=== PATIENT | female | born 1940 | race Caucasian/White ===

== ENCOUNTER 2017-08-08 20:03 | Inpatient (IN) | payer MEDICARE, OTHER ==
[~2017-08-08] VITALS: Ht 162.6 cm; Wt 54.5 kg
[~2017-08-08 20:03] MED LIST: ASPI-611; CITA20TA11 PO; ENAL2.5T40 PO; LORA0.5T PO; MEMA5TAB PO; QUET-1 PO; SIMV10TA2 PO; [UNRECOGNIZED DRUG - OTHER]; furosemide 10 MG/1 ML 10ml inj ONE; metoprolol tartrate 1mg/ml inj IV ONE; sod chloride 0.9% 10ml flush syringe IV ONE
[2017-08-08 20:51] LABS: BASOPHILS # (AUTO) 0.1 X10'3 (0-0.2); BASOPHILS % (AUTO) 0.7 % (0-1); EOSINOPHILS # (AUTO) 0.1 X10'3 (0-0.9); EOSINOPHILS % (AUTO) 1.1 % (0-6); HEMATOCRIT 41.1 % (35.0-45.0); HEMOGLOBIN 14.1 g/dl (12.0-16.0); LYMPHOCYTES # (AUTO) 2.2 X10'3 (1.1-4.8); MEAN CORPUSCULAR HGB CONC 34.3 % (33.0-36.5); MEAN CORPUSCULAR VOLUME 96.4 FL (78-98); MEAN PLATELET VOLUME 10.6 FL (7.4-10.4); MONOCYTES # (AUTO) 0.6 X10'3 (0-0.9); MONOCYTES % (AUTO) 7.9 % (2-12); NEUTROPHILS # (AUTO) 4.7 X10'3 (1.8-7.7); NEUTROPHILS % (AUTO) 61.3 % (42-75); PLATELET COUNT 150 X10'3 (140-440); RED BLOOD COUNT 4.26 X10'6 (4.20-5.60); RED CELL DISTRIBUTION WIDTH 16.2 % (11.5-14.5); WHITE BLOOD COUNT 7.6 X10'3 (4.5-11.0)
[2017-08-08 20:59] LABS: D-DIMER 1.75 MG/L FEU (0-0.50)
[2017-08-08] MEDS ORDERED: adenosine 3mg/ml 2ml vial IV ONE ×2 (21:00)
[2017-08-08] MEDS ORDERED: temazepam 15mg capsule PO PRN (21:00)
[2017-08-08 21:08] LABS: ALANINE AMINOTRANSFERASE 124 U/L (12-78); ALBUMIN 3.3 G/DL (3.4-5.0); ALKALINE PHOSPHATASE 74 IU/L (46-116); ANION GAP 8 (8-16); ASPARTATE AMINO TRANSFERASE 81 U/L (10-37); BILIRUBIN,TOTAL 0.8 MG/DL (0.1-1.0); BLOOD UREA NITROGEN 32 MG/DL (7-18); BUN/CREATININE RATIO 23.5 (6.6-38.0); CALCIUM 9.2 MG/DL (8.5-10.1); CHLORIDE 110 MMOL/L (99-107); CREATININE 1.36 MG/DL (0.40-0.90); GLUCOSE 111 MG/DL (70-104); POTASSIUM 4.4 MMOL/L (3.5-5.1); SODIUM 144 MMOL/L (135-145); TOTAL CARBON DIOXIDE 26.5 MMOL/L (24-32); TOTAL PROTEIN 6.7 G/DL (6.4-8.2); eGFR 38 ML/MIN
[2017-08-08 21:15] LABS: PLATELET ESTIMATE NORMAL
[2017-08-08 21:16] LABS: LARGE PLATELETS MODERATE
[2017-08-08] MEDS ORDERED: metoprolol tartrate 1mg/ml inj IV STA (21:24)
[2017-08-08] MEDS ORDERED: furosemide 40mg/4ml inj IV ONE (21:30)
[2017-08-08] MEDS ORDERED: heparin 10,000 units/1 ML INJ IV PRN (21:40)
[2017-08-08] MEDS ORDERED: heparin 10,000 units/1 ML INJ IV ONE (21:40)
[2017-08-08 21:52] LABS: INR 1.1 INR; PARTIAL THROMBOPLASTIN TIME 25 SECONDS (22-32); PROTHROMBIN TIME 11.3 SECONDS (9.0-12.0)
[2017-08-08] MEDS ORDERED: magnesium 2GM in 50ml NS 50 ML IV PRN (22:05)
[2017-08-08] MEDS ORDERED: acetaminophen 325mg tablet PO PRN (22:05)
[2017-08-08] MEDS ORDERED: magnesium 4gm in 100ml NS 100 ML IV PRN (22:05)
[2017-08-08] MEDS ORDERED: potassium Cl 40MEQ/NS 500ml 500 ML IV PRN ×2 (22:05)
[2017-08-08] MEDS ORDERED: ondansetron/PF 4mg/2ml inj IV PRN (22:05)
[2017-08-08] MEDS ORDERED: mag hydrox/Alum hydrox/simeth 30ml oral suspension PO PRN (22:05)
[2017-08-08] MEDS ORDERED: albuterol 2.5 MG/3 ML nebule NEB PRN (22:05)
[2017-08-08] MEDS ORDERED: morphine 4 MG/ML inj SYRINge IV PRN ×2 (22:05)
[2017-08-08] MEDS ORDERED: magnesium Cl slow-release 64mg tablet PO PRN (22:05)
[2017-08-08] MEDS ORDERED: magnesium hydroxide 30ml (MOM) UD suspension PO PRN (22:05)
[2017-08-08] MEDS ORDERED: ipratropium/albuterol 3ml nebule NEB PRN (22:05)
[2017-08-08] MEDS ORDERED: potassium Cl 20 mEq SR tablet PO PRN ×2 (22:05)
[2017-08-08] MEDS ORDERED: digoxin 250mcg/ml 2ml ampule IV ONE ×2 (23:10)
[2017-08-08] MEDS: K and/or MAG REPLACEMENT MC SCH (23:38)
[2017-08-09] MEDS ORDERED: digoxin 250mcg/ml 2ml ampule IV SCH ×2 (00:10→04:00)
[2017-08-09] MEDS ORDERED: haloperidol lactate 5mg/ml inj IM ONE (04:20)
[2017-08-09 04:48] LABS: BASOPHILS # (AUTO) 0.1 X10'3 (0-0.2); BASOPHILS % (AUTO) 0.7 % (0-1); EOSINOPHILS # (AUTO) 0.1 X10'3 (0-0.9); EOSINOPHILS % (AUTO) 1.7 % (0-6); HEMATOCRIT 40.4 % (35.0-45.0); HEMOGLOBIN 13.7 g/dl (12.0-16.0); LYMPHOCYTES # (AUTO) 2.8 X10'3 (1.1-4.8); LYMPHOCYTES % (AUTO) 36.7 % (21-51); MEAN CORPUSCULAR HEMOGLOBIN 32.7 PG (27.0-31.0); MEAN CORPUSCULAR HGB CONC 33.9 % (33.0-36.5); MEAN CORPUSCULAR VOLUME 96.4 FL (78-98); MEAN PLATELET VOLUME 10.4 FL (7.4-10.4); MONOCYTES # (AUTO) 0.5 X10'3 (0-0.9); MONOCYTES % (AUTO) 6.9 % (2-12); NEUTROPHILS # (AUTO) 4.1 X10'3 (1.8-7.7); PLATELET COUNT 142 X10'3 (140-440); RED BLOOD COUNT 4.19 X10'6 (4.20-5.60); RED CELL DISTRIBUTION WIDTH 16.5 % (11.5-14.5); WHITE BLOOD COUNT 7.6 X10'3 (4.5-11.0)
[2017-08-09 05:09] LABS: ALANINE AMINOTRANSFERASE 164 U/L (12-78); ALBUMIN 3.2 G/DL (3.4-5.0); ALBUMIN/GLOBULIN RATIO 0.9 (1.1-1.5); ALKALINE PHOSPHATASE 84 IU/L (46-116); ANION GAP 10 (8-16); ASPARTATE AMINO TRANSFERASE 133 U/L (10-37); BLOOD UREA NITROGEN 30 MG/DL (7-18); BUN/CREATININE RATIO 23.1 (6.6-38.0); CALCIUM 9.2 MG/DL (8.5-10.1); CHLORIDE 107 MMOL/L (99-107); CHOL/HDL RATIO 3.9 (0.00-4.99); CHOLESTEROL 182 MG/DL (0-200); GLUCOSE 106 MG/DL (70-104); HDL CHOLESTEROL 47 MG/DL (35-60); LDL CHOLESTEROL 122 MG/DL (50-100); MAGNESIUM 1.9 MG/DL (1.5-2.4); POTASSIUM 3.7 MMOL/L (3.5-5.1); SODIUM 143 MMOL/L (135-145); TOTAL CARBON DIOXIDE 26.1 MMOL/L (24-32); TOTAL PROTEIN 6.6 G/DL (6.4-8.2); TRIGLYCERIDES 51 MG/DL (20-135); TROPONIN I 0.06 NG/ML (0.0-0.05); eGFR 40 ML/MIN
[2017-08-09] MEDS ORDERED: lisinopril 2.5mg tablet PO SCH (08:00)
[2017-08-09] MEDS ORDERED: digoxin 250mcg/ml 2ml ampule IV ONE (08:00)
[2017-08-09] MEDS ORDERED: digoxin 250mcg (0.25mg) tablet PO SCH (08:00)
[2017-08-09 08:15] LABS: PARTIAL THROMBOPLASTIN TIME 50 SECONDS (22-32)
[2017-08-09] MEDS: LORazepam 0.5 MG tablet PO SCH ×2 (09:35→20:00)
[2017-08-09] MEDS: citalopram 20mg tablet PO SCH (09:35)
[2017-08-09] MEDS ORDERED: diltiazem 5mg/ml 5ml inj. IV ONE (10:05)
[2017-08-09] MEDS ORDERED: DILTIAZEM IV SCH (10:30)
[2017-08-09] MEDS ORDERED: DEXTROSE 5% IV SCH (10:30)
[2017-08-09] MEDS: memantine 5mg tablet PO SCH (11:02)
[2017-08-09 14:29] LABS: PARTIAL THROMBOPLASTIN TIME 73 SECONDS (22-32)
[2017-08-09 16:02] VITALS: BP 105/80
[2017-08-09] MEDS: potassium Cl 20 mEq SR tablet PO SCH (17:30)
[2017-08-09] MEDS ORDERED: normal saline 250ml IV soln 250 ML IV STA (18:03)
[2017-08-09] MEDS ORDERED: amiodarone 150mg/dext, iso-os 100 ML IV ONE (18:15)
[2017-08-09 19:00] VITALS: BP 72/50
[2017-08-09] MEDS: amiodarone/D5 450MG/250ML BAG 250 ML IV PRN (19:18)
[2017-08-09] MEDS ORDERED: normal saline 1000ml 1,000 ML IV SCH (19:45)
[2017-08-09 20:00] VITALS: BP 82/67
[2017-08-09] MEDS: apixaban 5mg tablet PO SCH (20:00)
[2017-08-09] MEDS ORDERED: furosemide 20 MG/2 ML vial IV SCH (20:00)
[2017-08-09 21:00] VITALS: BP 100/73
[2017-08-09] MEDS: atorvastatin 10mg tablet PO SCH (21:00)
[2017-08-09] MEDS: quetiapine 100mg tablet PO SCH (21:00)
[2017-08-09 22:00] VITALS: BP 100/57
[2017-08-09 23:00] VITALS: BP 100/57
[2017-08-10] VITALS (16 sets, daily range): BP systolic 74–119; BP diastolic 43–79
[2017-08-10] MEDS: amiodarone/D5 450MG/250ML BAG 250 ML IV PRN ×2 (02:09→18:22)
[2017-08-10 05:55] LABS: BASOPHILS % (AUTO) 0.4 % (0-1); EOSINOPHILS # (AUTO) 0.1 X10'3 (0-0.9); EOSINOPHILS % (AUTO) 1.6 % (0-6); HEMATOCRIT 36.3 % (35.0-45.0); HEMOGLOBIN 12.2 g/dl (12.0-16.0); LYMPHOCYTES # (AUTO) 1.3 X10'3 (1.1-4.8); LYMPHOCYTES % (AUTO) 22.9 % (21-51); MEAN CORPUSCULAR HEMOGLOBIN 32.5 PG (27.0-31.0); MEAN CORPUSCULAR HGB CONC 33.7 % (33.0-36.5); MEAN CORPUSCULAR VOLUME 96.5 FL (78-98); MEAN PLATELET VOLUME 10.3 FL (7.4-10.4); MONOCYTES # (AUTO) 0.4 X10'3 (0-0.9); MONOCYTES % (AUTO) 7.6 % (2-12); NEUTROPHILS # (AUTO) 3.7 X10'3 (1.8-7.7); NEUTROPHILS % (AUTO) 67.5 % (42-75); PLATELET COUNT 130 X10'3 (140-440); RED BLOOD COUNT 3.76 X10'6 (4.20-5.60); RED CELL DISTRIBUTION WIDTH 16.7 % (11.5-14.5); WHITE BLOOD COUNT 5.5 X10'3 (4.5-11.0)
[2017-08-10 06:31] LABS: ALANINE AMINOTRANSFERASE 135 U/L (12-78); ALBUMIN 2.9 G/DL (3.4-5.0); ALKALINE PHOSPHATASE 70 IU/L (46-116); ANION GAP 10 (8-16); ASPARTATE AMINO TRANSFERASE 91 U/L (10-37); BILIRUBIN,TOTAL 0.7 MG/DL (0.1-1.0); BLOOD UREA NITROGEN 23 MG/DL (7-18); BUN/CREATININE RATIO 19.7 (6.6-38.0); CALCIUM 8.6 MG/DL (8.5-10.1); CHLORIDE 111 MMOL/L (99-107); CREATININE 1.17 MG/DL (0.40-0.90); GLUCOSE 98 MG/DL (70-104); MAGNESIUM 1.8 MG/DL (1.5-2.4); POTASSIUM 4.3 MMOL/L (3.5-5.1); SODIUM 145 MMOL/L (135-145); TOTAL CARBON DIOXIDE 24.5 MMOL/L (24-32); TOTAL PROTEIN 5.9 G/DL (6.4-8.2); eGFR 45 ML/MIN
[2017-08-10] MEDS ORDERED: digoxin 250mcg/ml 2ml ampule IV ONE (06:35)
[2017-08-10] MEDS ORDERED: digoxin 125mcg (0.125mg) tablet PO SCH (08:00)
[2017-08-10] MEDS: K and/or MAG REPLACEMENT MC SCH (08:00)
[2017-08-10] MEDS: LORazepam 0.5 MG tablet PO SCH ×2 (08:56→20:35)
[2017-08-10] MEDS: apixaban 5mg tablet PO SCH ×2 (08:57→20:55)
[2017-08-10] MEDS: citalopram 20mg tablet PO SCH (08:57)
[2017-08-10] MEDS: memantine 5mg tablet PO SCH (08:57)
[2017-08-10] MEDS: potassium Cl 20 mEq SR tablet PO SCH ×2 (08:59→17:30)
[2017-08-10] MEDS ORDERED: diltiazem-D5W 125mg/125ml 125 ML IV SCH ×2 (10:30)
[2017-08-10] MEDS: diltiazem-D5W 125mg/125ml 125 ML IV PRN ×3 (11:17→15:27)
[2017-08-10] MEDS: normal saline 1000ml 1,000 ML IV SCH (15:32)
[2017-08-10] MEDS ORDERED: amiodarone 200mg tablet PO SCH (20:00)
[2017-08-10] MEDS: quetiapine 100mg tablet PO SCH (20:10)
[2017-08-10] MEDS: atorvastatin 10mg tablet PO SCH (20:11)
[2017-08-10 20:32] LABS: CLARITY,URINE BLOODY (Clear); COLOR,URINE RED (Yellow); UA COLLECTION TYPE NON-SPECIFIED
[2017-08-10 20:37] LABS: BACTERIA,URINE FEW /HPF (Neg); RBC,URINE TNTC /HPF (0-2)
[2017-08-10 20:38] LABS: MUCUS STRANDS MODERATE /LPF (Neg); SQUAMOUS EPITHELIAL CELL,UR FEW /LPF (FEW); URIC ACID CRYSTALS 1+ /HPF (NEGATIVE)
[2017-08-10] MEDS ORDERED: diltiazem 30mg tablet PO ONE (21:00)
[2017-08-11] VITALS (11 sets, daily range): BP systolic 74–137; BP diastolic 46–62
[2017-08-11 04:31] LABS: BASOPHILS % (AUTO) 0.4 % (0-1); EOSINOPHILS # (AUTO) 0.1 X10'3 (0-0.9); EOSINOPHILS % (AUTO) 1.8 % (0-6); HEMATOCRIT 33.4 % (35.0-45.0); HEMOGLOBIN 11.1 g/dl (12.0-16.0); LYMPHOCYTES # (AUTO) 1.7 X10'3 (1.1-4.8); LYMPHOCYTES % (AUTO) 27.2 % (21-51); MEAN CORPUSCULAR HEMOGLOBIN 32.6 PG (27.0-31.0); MEAN CORPUSCULAR HGB CONC 33.4 % (33.0-36.5); MEAN CORPUSCULAR VOLUME 97.8 FL (78-98); MONOCYTES # (AUTO) 0.7 X10'3 (0-0.9); MONOCYTES % (AUTO) 11.2 % (2-12); NEUTROPHILS # (AUTO) 3.6 X10'3 (1.8-7.7); NEUTROPHILS % (AUTO) 59.4 % (42-75); PLATELET COUNT 107 X10'3 (140-440); RED BLOOD COUNT 3.41 X10'6 (4.20-5.60); WHITE BLOOD COUNT 6.1 X10'3 (4.5-11.0)
[2017-08-11 04:49] LABS: ALANINE AMINOTRANSFERASE 93 U/L (12-78); ALBUMIN 2.5 G/DL (3.4-5.0); ALBUMIN/GLOBULIN RATIO 0.9 (1.1-1.5); ALKALINE PHOSPHATASE 57 IU/L (46-116); ANION GAP 7 (8-16); ASPARTATE AMINO TRANSFERASE 55 U/L (10-37); BILIRUBIN,TOTAL 0.7 MG/DL (0.1-1.0); BLOOD UREA NITROGEN 23 MG/DL (7-18); BUN/CREATININE RATIO 17.6 (6.6-38.0); CALCIUM 8.4 MG/DL (8.5-10.1); CHLORIDE 108 MMOL/L (99-107); CREATININE 1.31 MG/DL (0.40-0.90); GLUCOSE 104 MG/DL (70-104); MAGNESIUM 1.7 MG/DL (1.5-2.4); POTASSIUM 4.6 MMOL/L (3.5-5.1); SODIUM 139 MMOL/L (135-145); TOTAL CARBON DIOXIDE 24.3 MMOL/L (24-32); TOTAL PROTEIN 5.3 G/DL (6.4-8.2); eGFR 39 ML/MIN
[2017-08-11] MEDS: normal saline 1000ml 1,000 ML IV SCH ×2 (05:30→19:51)
[2017-08-11] MEDS ORDERED: digoxin 125mcg (0.125mg) tablet PO SCH (08:00)
[2017-08-11] MEDS ORDERED: diltiazem 30mg tablet PO SCH ×3 (08:00→21:00)
[2017-08-11] MEDS: LORazepam 0.5 MG tablet PO SCH ×2 (08:00→20:52)
[2017-08-11] MEDS: apixaban 5mg tablet PO SCH (08:00)
[2017-08-11] MEDS: memantine 5mg tablet PO SCH (08:00)
[2017-08-11] MEDS: citalopram 20mg tablet PO SCH (08:00)
[2017-08-11] MEDS: K and/or MAG REPLACEMENT MC SCH (08:00)
[2017-08-11] MEDS: potassium Cl 20 mEq SR tablet PO SCH ×2 (08:30→17:30)
[2017-08-11] MEDS: quetiapine 100mg tablet PO SCH (20:51)
[2017-08-11] MEDS: atorvastatin 10mg tablet PO SCH (20:52)
[2017-08-12 03:00] VITALS: BP 97/58
[2017-08-12 05:41] LABS: BASOPHILS % (AUTO) 0.5 % (0-1); EOSINOPHILS # (AUTO) 0.1 X10'3 (0-0.9); EOSINOPHILS % (AUTO) 2.1 % (0-6); HEMATOCRIT 35.8 % (35.0-45.0); HEMOGLOBIN 11.9 g/dl (12.0-16.0); LYMPHOCYTES # (AUTO) 1.7 X10'3 (1.1-4.8); LYMPHOCYTES % (AUTO) 27.2 % (21-51); MEAN CORPUSCULAR HEMOGLOBIN 32.7 PG (27.0-31.0); MEAN CORPUSCULAR HGB CONC 33.3 % (33.0-36.5); MEAN CORPUSCULAR VOLUME 98.2 FL (78-98); MEAN PLATELET VOLUME 10.3 FL (7.4-10.4); MONOCYTES # (AUTO) 0.6 X10'3 (0-0.9); MONOCYTES % (AUTO) 9.9 % (2-12); NEUTROPHILS # (AUTO) 3.7 X10'3 (1.8-7.7); NEUTROPHILS % (AUTO) 60.3 % (42-75); PLATELET COUNT 106 X10'3 (140-440); RED BLOOD COUNT 3.64 X10'6 (4.20-5.60); RED CELL DISTRIBUTION WIDTH 16.2 % (11.5-14.5); WHITE BLOOD COUNT 6.2 X10'3 (4.5-11.0)
[2017-08-12 05:59] LABS: ALANINE AMINOTRANSFERASE 76 U/L (12-78); ALBUMIN 2.6 G/DL (3.4-5.0); ALBUMIN/GLOBULIN RATIO 0.9 (1.1-1.5); ALKALINE PHOSPHATASE 55 IU/L (46-116); ANION GAP 7 (8-16); ASPARTATE AMINO TRANSFERASE 39 U/L (10-37); BILIRUBIN,TOTAL 0.8 MG/DL (0.1-1.0); BLOOD UREA NITROGEN 28 MG/DL (7-18); CALCIUM 8.7 MG/DL (8.5-10.1); CHLORIDE 110 MMOL/L (99-107); CREATININE 1.47 MG/DL (0.40-0.90); GLUCOSE 106 MG/DL (70-104); POTASSIUM 4.8 MMOL/L (3.5-5.1); SODIUM 140 MMOL/L (135-145); TOTAL CARBON DIOXIDE 23.5 MMOL/L (24-32); TOTAL PROTEIN 5.4 G/DL (6.4-8.2); eGFR 34 ML/MIN
[2017-08-12 06:00] VITALS: BP 112/61
[2017-08-12] MEDS: K and/or MAG REPLACEMENT MC SCH (08:00)
[2017-08-12] MEDS ORDERED: LORazepam 0.5 MG tablet PO PRN (08:15)
[2017-08-12] MEDS: potassium Cl 20 mEq SR tablet PO SCH ×2 (08:30→16:32)
[2017-08-12] MEDS: citalopram 20mg tablet PO SCH (08:42)
[2017-08-12] MEDS: memantine 5mg tablet PO SCH (08:42)
[2017-08-12] MEDS: normal saline 1000ml 1,000 ML IV SCH (10:09)
[2017-08-12 11:00] VITALS: BP 118/50
[2017-08-12 15:00] VITALS: BP 125/95
[2017-08-12 19:00] VITALS: BP 98/60
[2017-08-12] MEDS: atorvastatin 10mg tablet PO SCH (20:30)
[2017-08-12] MEDS: quetiapine 100mg tablet PO SCH (20:30)
[2017-08-12 23:00] VITALS: BP 80/50
[2017-08-13] VITALS (7 sets, daily range): BP systolic 92–164; BP diastolic 52–88
[2017-08-13] MEDS: normal saline 1000ml 1,000 ML IV SCH ×2 (01:30→14:59)
[2017-08-13 05:47] LABS: BASOPHILS % (AUTO) 0.4 % (0-1); EOSINOPHILS # (AUTO) 0.2 X10'3 (0-0.9); EOSINOPHILS % (AUTO) 2.8 % (0-6); HEMATOCRIT 34.6 % (35.0-45.0); HEMOGLOBIN 11.6 g/dl (12.0-16.0); LYMPHOCYTES # (AUTO) 1.5 X10'3 (1.1-4.8); MEAN CORPUSCULAR HEMOGLOBIN 32.6 PG (27.0-31.0); MEAN CORPUSCULAR HGB CONC 33.4 % (33.0-36.5); MEAN CORPUSCULAR VOLUME 97.8 FL (78-98); MEAN PLATELET VOLUME 10.1 FL (7.4-10.4); MONOCYTES # (AUTO) 0.6 X10'3 (0-0.9); MONOCYTES % (AUTO) 10.1 % (2-12); NEUTROPHILS # (AUTO) 3.5 X10'3 (1.8-7.7); NEUTROPHILS % (AUTO) 60.7 % (42-75); PLATELET COUNT 111 X10'3 (140-440); RED BLOOD COUNT 3.54 X10'6 (4.20-5.60); RED CELL DISTRIBUTION WIDTH 15.4 % (11.5-14.5); WHITE BLOOD COUNT 5.8 X10'3 (4.5-11.0)
[2017-08-13 06:09] LABS: ALANINE AMINOTRANSFERASE 71 U/L (12-78); ALBUMIN 2.5 G/DL (3.4-5.0); ALBUMIN/GLOBULIN RATIO 0.9 (1.1-1.5); ALKALINE PHOSPHATASE 52 IU/L (46-116); ANION GAP 7 (8-16); ASPARTATE AMINO TRANSFERASE 39 U/L (10-37); BILIRUBIN,TOTAL 0.9 MG/DL (0.1-1.0); BLOOD UREA NITROGEN 24 MG/DL (7-18); BUN/CREATININE RATIO 20.7 (6.6-38.0); CALCIUM 8.4 MG/DL (8.5-10.1); CHLORIDE 110 MMOL/L (99-107); CREATININE 1.16 MG/DL (0.40-0.90); GLUCOSE 82 MG/DL (70-104); MAGNESIUM 1.9 MG/DL (1.5-2.4); POTASSIUM 3.9 MMOL/L (3.5-5.1); SODIUM 142 MMOL/L (135-145); TOTAL CARBON DIOXIDE 24.9 MMOL/L (24-32); TOTAL PROTEIN 5.4 G/DL (6.4-8.2); eGFR 45 ML/MIN
[2017-08-13] MEDS: K and/or MAG REPLACEMENT MC SCH (08:00)
[2017-08-13] MEDS: potassium Cl 20 mEq SR tablet PO SCH ×2 (09:17→17:39)
[2017-08-13] MEDS: amiodarone 200mg tablet PO SCH ×2 (09:17→20:47)
[2017-08-13] MEDS: citalopram 20mg tablet PO SCH (09:17)
[2017-08-13] MEDS: digoxin 125mcg (0.125mg) tablet PO SCH (09:18)
[2017-08-13] MEDS: memantine 5mg tablet PO SCH (09:18)
[2017-08-13 09:47] LABS: BILIRUBIN,DIRECT 0.2 MG/DL (0-0.3)
[2017-08-13] MEDS: quetiapine 100mg tablet PO SCH (20:47)
[2017-08-13] MEDS: atorvastatin 10mg tablet PO SCH (20:47)
[2017-08-14 03:00] VITALS: BP 133/82
[2017-08-14] MEDS: normal saline 1000ml 1,000 ML IV SCH ×2 (05:15→20:30)
[2017-08-14 06:00] VITALS: BP 144/82
[2017-08-14 06:37] LABS: ALBUMIN 2.4 G/DL (3.4-5.0); ANION GAP 7 (8-16); BLOOD UREA NITROGEN 15 MG/DL (7-18); BUN/CREATININE RATIO 14.3 (6.6-38.0); CALCIUM 8.4 MG/DL (8.5-10.1); CHLORIDE 110 MMOL/L (99-107); CREATININE 1.05 MG/DL (0.40-0.90); GLUCOSE 80 MG/DL (70-104); MAGNESIUM 1.8 MG/DL (1.5-2.4); POTASSIUM 3.7 MMOL/L (3.5-5.1); SODIUM 145 MMOL/L (135-145); TOTAL CARBON DIOXIDE 27.6 MMOL/L (24-32); eGFR 51 ML/MIN
[2017-08-14] MEDS: K and/or MAG REPLACEMENT MC SCH (08:00)
[2017-08-14] MEDS: potassium Cl 20 mEq SR tablet PO SCH ×3 (08:01→15:26)
[2017-08-14] MEDS: amiodarone 200mg tablet PO SCH ×2 (08:01→20:30)
[2017-08-14] MEDS: memantine 5mg tablet PO SCH (08:02)
[2017-08-14] MEDS: citalopram 20mg tablet PO SCH (08:02)
[2017-08-14] MEDS: digoxin 125mcg (0.125mg) tablet PO SCH (08:02)
[2017-08-14] MEDS: LACTOSE-FREE FOOD 237ML (BOOST) PO SCH ×2 (13:00→18:00)
[2017-08-14 15:00] VITALS: BP 103/61
[2017-08-14] MEDS: furosemide 20 MG/2 ML vial IV SCH (15:09)
[2017-08-14 18:00] VITALS: BP 147/83
[2017-08-14] MEDS: atorvastatin 10mg tablet PO SCH (20:30)
[2017-08-14] MEDS: quetiapine 100mg tablet PO SCH (20:30)
[2017-08-14 22:00] VITALS: BP 144/71
[2017-08-15 02:00] VITALS: BP 136/67
[2017-08-15 06:00] VITALS: BP 121/69
[2017-08-15 06:09] LABS: ALBUMIN 2.1 G/DL (3.4-5.0); ANION GAP 4 (8-16); BLOOD UREA NITROGEN 16 MG/DL (7-18); BUN/CREATININE RATIO 16.5 (6.6-38.0); CALCIUM 8.2 MG/DL (8.5-10.1); CHLORIDE 110 MMOL/L (99-107); CREATININE 0.97 MG/DL (0.40-0.90); GLUCOSE 78 MG/DL (70-104); MAGNESIUM 1.6 MG/DL (1.5-2.4); POTASSIUM 3.7 MMOL/L (3.5-5.1); SODIUM 143 MMOL/L (135-145); TOTAL CARBON DIOXIDE 28.9 MMOL/L (24-32); eGFR 56 ML/MIN
[2017-08-15] MEDS: K and/or MAG REPLACEMENT MC SCH (08:00)
[2017-08-15] MEDS: potassium Cl 20 mEq SR tablet PO SCH ×3 (08:30→17:37)
[2017-08-15] MEDS: furosemide 20 MG/2 ML vial IV SCH (08:34)
[2017-08-15] MEDS: digoxin 125mcg (0.125mg) tablet PO SCH (08:35)
[2017-08-15] MEDS: memantine 5mg tablet PO SCH (08:35)
[2017-08-15] MEDS: citalopram 20mg tablet PO SCH (08:35)
[2017-08-15] MEDS: amiodarone 200mg tablet PO SCH (08:41)
[2017-08-15] MEDS: LACTOSE-FREE FOOD 237ML (BOOST) PO SCH ×2 (08:41→13:00)
[2017-08-15] MEDS: normal saline 1000ml 1,000 ML IV SCH (10:34)
[2017-08-15 11:00] VITALS: BP 155/65
[2017-08-15] MEDS ORDERED: AMIO200T57 PO (11:09)
[2017-08-15 15:00] VITALS: BP 153/56
== END 2017-08-15 17:58 | DRG 682 ==
LOC: ER 20:03 → ED HOLD 22:03 → PCU 3S 08-09 15:55
PROVIDERS: ADMIT Internal Medicine; ATTEND Internal Medicine
PROC: CB221ZZ Tomographic (Tomo) Nuclear Medicine Imaging of Lungs and Bronchi using Technetium 99m (Tc-99m) (ICD-10-PCS; principal; 2017-08-09)
DX: N17.9 Acute kidney failure, unspecified (principal); I50.33 Acute on chronic diastolic (congestive) heart failure; E44.0 Moderate protein-calorie malnutrition; I48.0 Paroxysmal atrial fibrillation; F03.91 Unspecified dementia, unspecified severity, with behavioral disturbance; I34.0 Nonrheumatic mitral (valve) insufficiency; I47.1 Supraventricular tachycardia; E78.5 Hyperlipidemia, unspecified; F32.9 Major depressive disorder, single episode, unspecified; F41.9 Anxiety disorder, unspecified; I11.0 Hypertensive heart disease with heart failure; R31.9 Hematuria, unspecified; R94.5 Abnormal results of liver function studies; T50.995A Adverse effect of other drugs, medicaments and biological substances, initial encounter; K76.1 Chronic passive congestion of liver; R79.1 Abnormal coagulation profile; Z90.49 Acquired absence of other specified parts of digestive tract; Z90.710 Acquired absence of both cervix and uterus; Z88.5 Allergy status to narcotic agent; Z88.0 Allergy status to penicillin; Z87.891 Personal history of nicotine dependence; Z81.8 Family history of other mental and behavioral disorders; Y92.89 Other specified places as the place of occurrence of the external cause; Z68.20 Body mass index [BMI] 20.0-20.9, adult
CPT/HCPCS: 36415; 71045; 78582; 80048; 80053; 80061; 80076; 80162; 81001; 83735; 83880; 84439; 84443; 84484; 85025; 85379; 85610; 85730; 87070; 87088; 93005; 93306; 94760; 96374; 96375; 97116; 97162; 97530; 97535; 99285; A4315; A6212; A9539; A9540; J0153; J0282; J1160; J1630; J1644; J1940; J2270; J2405; J3490; J7030